=== PATIENT | female | born 1970 | race African-American/Black ===

== ENCOUNTER 2021-06-06 16:53 | Emergency (ER) | payer OTHER | END 2021-06-06 17:52 | disposition home or self-care (01) | LOC: CSHERS 16:53 | DX: N94.6 Dysmenorrhea, unspecified (principal); I10 Essential (primary) hypertension | CPT/HCPCS: 99283 ==

== ENCOUNTER 2021-08-28 13:09 | Outpatient (CLI) | payer OTHER ==
[2021-08-28 21:51] LABS: SARS-CoV-2 PCR by NAA Not Detected (NotDetected)
== END 2021-08-28 13:10 | disposition home or self-care (01) ==
LOC: CSHLAB 13:09
PROVIDERS: ATTEND Surgery
DX: Z20.822 Contact with and (suspected) exposure to COVID-19 (principal)
CPT/HCPCS: U0003; U0005

== ENCOUNTER 2021-09-01 08:35 | Outpatient (CLI) | payer OTHER | END 2021-09-01 08:36 | disposition home or self-care (01) | LOC: CSHRAD 08:35 | PROVIDERS: ATTEND Surgery | DX: E66.01 Morbid (severe) obesity due to excess calories (principal) | CPT/HCPCS: 74220 ==

== ENCOUNTER 2025-03-29 14:30 | Outpatient (CLI) | payer OTHER | END 2025-03-29 14:31 | disposition home or self-care (01) | LOC: CSHMAMMO 14:30 | PROVIDERS: ATTEND Internal Medicine Hospice and Palliative Medicine | DX: Z12.31 Encounter for screening mammogram for malignant neoplasm of breast (principal) | CPT/HCPCS: 77067 ==